=== PATIENT | female | born 1970 | race Two or more races ===

== ENCOUNTER → 2024-12-17 | Outpatient (CLI) | payer MEDICAID, SELFPAY ==
--- NOTE | 2024-12-17 15:15 | XR_ITS ---
Examination: Screening digital mammography, bilateral Computer aided detection 3-D breast Tomosynthesis, bilateral Date and time of exam: December 17, 2024 1523 hours Indication: Screening Technique: Nonmagnified MLO, CC views of the breasts to been obtained, reconstructed from 3-D Tomosynthesis images. R2 computer aided detection program utilized for evaluation of suspicious masses and/or abnormal calcifications. 3-D Tomosynthesis images obtained. Findings: The breasts are heterogeneously dense, which may obscure small masses Benign calcifications. No suspicious masses Impression: BI-RADS category II: Benign Findings. Recommend 1 year follow-up mammogram.
== END | disposition home or self-care (01) ==
PROVIDERS: Referring Provider Registered Nurse Community Health; Visit Provider Registered Nurse Community Health
DX: Z12.31 Encounter for screening mammogram for malignant neoplasm of breast (principal); R92.323 Mammographic fibroglandular density, bilateral breasts; R92.1 Mammographic calcification found on diagnostic imaging of breast
CPT/HCPCS: 77063; 77067

== ENCOUNTER 2024-12-21 16:06 | Emergency (ER) | payer MEDICAID, SELFPAY ==
[2024-12-21 16:08] VITALS: BMI 28.3
[2024-12-21 16:45] VITALS: BP 129/90; PULSE 97; RESP 18; TEMP 36.8; O2SAT 98
--- NOTE | 2024-12-21 16:46 | XR_ITS ---
Examination: CT lumbar spine, without contrast. 2-D sagittal reconstructions. 2-D coronal reconstructions. 3-D reconstructions. Date and time of exam:December 21, 2024 1819 hours INDICATIONS: Onset lower back pain beginning 3 days ago CTDI: vol (mGy):19.9 DLP: (mGycm):541 Technique: Multiple 1.25 mm axial sections of the lumbar spine without intravenous contrast have been obtained. 2-D sagittal and coronal reconstructions have been obtained. 3-D reconstructions have been obtained. Low dose protocols were performed. One or more of the following dose reduction techniques were used; automated exposure control, adjustment of the mA and/or KV according to patient size, use of iterative reconstruction technique. Findings: Adequate alignment lumbar vertebral bodies on the lateral view No lumbar fracture No spondylolisthesis Moderate disc narrowing L5-S1 L5-S1 4 mm central paracentral disc bulge extending to the foraminal regions with mild bilateral L5 ganglionic impression L4-L5 3 mm central lumbar disc bulge L3-L4 no disc protrusion L2-L3 no disc protrusion L1-L2 no disc protrusion IMPRESSION: Moderate degenerative disc disease L5-S1 L5-S1 4 mm central paracentral disc bulge extending to the foraminal regions with mild bilateral L5 ganglionic impression L4-L5 3 mm central lumbar disc bulge As clinically warranted, MRI lumbar spine without contrast follow-up would best assess full extent of acquired spinal stenosis
--- NOTE | 2024-12-21 16:47 | PD.EDRME ---
Rapid Medical Screening Exam RME Arrival date/time: 12/21/24 16:06 This is a case of 54-year-old female with history of chronic low back pain and surgery came in in the emergency room due to worsening lower back pain for 3 days associated with numbness tingling and weakness of both lower extremities persistence of the pain thus patient decided to sought consult here in the emergency room Chief Complaint: General Adult/Misc Complain Vital signs: Vital Signs Temperature 98.3 F 12/21/24 16:45 Pulse Rate 97 12/21/24 16:45 Respiratory Rate 18 12/21/24 16:45 Blood Pressure 129/90 H 12/21/24 16:45 Pulse Oximetry (%) 98 12/21/24 16:45 Oxygen Delivery Method Room Air 12/21/24 16:45
== END 2024-12-21 20:35 | disposition left against medical advice (07) ==
LOC: SERX 17:23
PROVIDERS: Emergency Provider Emergency Medicine
DX: M54.50 Low back pain, unspecified (principal); R20.0 Anesthesia of skin; R20.2 Paresthesia of skin; R53.1 Weakness; G89.29 Other chronic pain; Z53.29 Procedure and treatment not carried out because of patient's decision for other reasons
CPT/HCPCS: 72131; 99283

== ENCOUNTER → 2025-01-19 | Outpatient (CLI) | payer MEDICAID, SELFPAY ==
--- NOTE | 2025-01-19 14:45 | XR_ITS ---
MRI shoulder, right, without contrast. Date and time: September 19, 2024 1630 hours INDICATIONS: Right shoulder pain 8 months getting worse decreased range of motion Technique: Multiple axial, sagittal and coronal sections of the shoulder have been obtained. Siemens high-resolution 1.5 Ml MRI scanner is utilized. Axial fat-suppressed sections, TR 2350, TE 18 T2-weighted coronal fat-saturated images, TR 3500, TE 7100 T1-weighted coronal images, TR 500, TE 15 T2-weighted sagittal fat-saturated images, TR 3500, TE 57 T1-weighted sagittal sections, TR 504, TE 13. Findings: Supraspinatus tendon insertion is intact. Infraspinatus tendon insertion is intact. Subscapularis insertion is intact. Subscapularis bursa is not seen. Long head of the biceps is in the bicipital groove. No definite tear of the biceps superior labral anchor is seen. Retraction of the musculotendinous junction of the rotator cuff is not seen . Tendinosis pattern is moderate. Distance between the acromium and humeral head is 5.5 mm Atrophy of the supraspinatus muscle is moderate. Atrophy of the infraspinatus muscle is mild. Sagittal sections demonstrate a horizontal acromion. Acromioclavicular joint demonstrates mild osteoarthritis . Osacromiale is not identified. No labral tears Bony glenoid fossa on the sagittal sections does not demonstrate osseous defect. Occult fracture or area of avascular necrosis is not seen. Acromioclavicular joint separation is not visible. Defect in the posterolateral margin of the humeral head is not seen Impression: Moderate rotator cuff tendinosis. Rotator cuff intact No labral tears
== END | disposition home or self-care (01) ==
PROVIDERS: PCP Registered Nurse Community Health; Referring Provider Registered Nurse Community Health; Visit Provider Registered Nurse Community Health
DX: M67.813 Other specified disorders of tendon, right shoulder (principal)
CPT/HCPCS: 73221

== ENCOUNTER → 2025-02-02 | Outpatient (CLI) | payer MEDICAID, SELFPAY ==
--- NOTE | 2025-02-02 16:45 | XR_ITS ---
Examination: MRI lumbar spine without contrast Date and time of exam: February 02, 2025, 1740 hrs. Indications: Low back pain years, worse post lumbar spine surgery 2022, numbness in the legs. Technique: Multiple MRI axial and sagittal sections lumbar spine. Sagittal T2-weighted images, TR 3500, TE 118 T1 weighted transverse sections, TR 688 T8.5, T2-weighted sagittal sections T1 weighted sagittal sections TR 621, TE 30 T2 axial sections, TR 4, 190, TE 84. Findings: Adequate alignment lumbar vertebral bodies on the lateral view. Disc desiccation lower 2 lumbar levels. Moderate disc narrowing L5-S1. L5-S1 3 mm central 6 mm bilateral foraminal disc bulges with mild bilateral L5 ganglionic compression. L4-L5 5 mm central lumbar disc bulge. More cephalad levels unremarkable. Impression: L5-S1 3 mm central 6 mm bilateral foraminal disc bulges producing mild bilateral L5 ganglionic compression. L4-L5 5 mm central lumbar disc bulge.
== END | disposition home or self-care (01) ==
LOC: SMRI 16:41
PROVIDERS: PCP Registered Nurse Community Health; Referring Provider Registered Nurse Community Health; Visit Provider Registered Nurse Community Health
DX: M51.370 Other intervertebral disc degeneration, lumbosacral region with discogenic back pain only (principal); M51.360 Other intervertebral disc degeneration, lumbar region with discogenic back pain only; G95.20 Unspecified cord compression
CPT/HCPCS: 72148

== ENCOUNTER → 2025-02-11 | Outpatient (CLI) | payer MEDICAID, SELFPAY ==
--- NOTE | 2025-02-11 15:30 | XR_ITS ---
Examination: Pelvic ultrasound, transabdominal, complete Technique: Transabdominal ultrasound of the pelvis performed using grayscale imaging Date and time of exam: February 11, 2025 1535 hours INDICATIONS: Pelvic pain several months, hysterectomy history FINDINGS: Absent uterus Right ovary obscured by bowel gas Left ovary 2.0 cm arterial flow IMPRESSION: Limited study Normal left ovary
== END | disposition home or self-care (01) ==
PROVIDERS: PCP Registered Nurse Community Health; Referring Provider Registered Nurse Community Health; Visit Provider Registered Nurse Community Health
DX: R10.2 Pelvic and perineal pain (principal); Z90.710 Acquired absence of both cervix and uterus
CPT/HCPCS: 76856